=== PATIENT | male | born 1970 | race Caucasian/White ===

== ENCOUNTER 2016-10-10 14:16 | Emergency (ER) | payer OTHER ==
--- NOTE | 2016-10-10 16:15 | ED ---
General Adult HPI - General Source: patient, RN notes reviewed Mode of arrival: ambulatory Limitations: no limitations <Harshad Levy - Last Filed: 10/10/16 16:12> <Aubrey Bass - Last Filed: 10/10/16 20:58> <Jhoan Duran - Last Filed: 10/11/16 03:31> - General Chief complaint: Psychiatric Symptoms Stated complaint: Mental Health Time Seen by Provider: 10/10/16 15:05 - History of Present Illness Initial comments: Patient is a 46-year-old male who presents emergency room today with a chief complaint of suicidal ideation. Patient is moving his medications for the past 5 days. He states the symptoms have been increasing over the last few weeks. Patient states he is trying to follow up with therapist but currently between therapist counselors at this time. Patient does admit to attempt suicide in the past and hospitalization. He denies any homicidal thoughts or plans. Does admit to auditory hallucinations. Denies any other complaints. Patient denies any recent fever, chills, shortness of breath, chest pain, back pain, abdominal pain, nausea or vomiting, numbness or tingling, dysuria or hematuria, constipation or diarrhea, headaches or visual changes, or any other complaints. (Harshad Levy) - Related Data Home Medications Medication Instructions Recorded Confirmed OXcarbazepine [Trileptal] 300 mg PO BID 10/10/16 10/10/16 QUEtiapine [SEROquel] 100 mg PO HS 10/10/16 10/10/16 buPROPion HCL [Wellbutrin XL] 150 mg PO DAILY 10/10/16 10/10/16 clonazePAM [KlonoPIN] 1 mg PO HS PRN 10/10/16 10/10/16 traZODone HCL [Desyrel] 100 mg PO HS 10/10/16 10/10/16 Allergies Allergy/AdvReac Type Severity Reaction Status Date / Time Penicillins Allergy Unknown Verified 10/10/16 15:14 Childhood Review of Systems ROS Other: All systems not noted in ROS Statement are negative. <Harshad Levy - Last Filed: 10/10/16 16:12> ROS Other: All systems not noted in ROS Statement are negative. <Aubrey Bass - Last Filed: 10/10/16 20:58> ROS Other: All systems not noted in ROS Statement are negative. <Jhoan Duran - Last Filed: 10/11/16 03:31> ROS Statement: Those systems with pertinent positive or pertinent negative responses have been documented in the HPI. Past Medical History Past Medical History: No Reported History History of Any Multi-Drug Resistant Organisms: None Reported Past Surgical History: Orthopedic Surgery Additional Past Surgical History / Comment(s): DEVIATED SEPTUM, LEFT WRIST SURGERY Past Psychological History: Depression Smoking Status: Current every day smoker Past Alcohol Use History: Abuse Past Drug Use History: Cocaine <Harshad Levy - Last Filed: 10/10/16 16:12> General Exam Limitations: no limitations <Harshad Levy - Last Filed: 10/10/16 16:12> <Aubrey Bass - Last Filed: 10/10/16 20:58> <Jhoan Duran - Last Filed: 10/11/16 03:31> - General Exam Comments Initial Comments: General: The patient is awake and alert, in no distress, and does not appear acutely ill. Eye: Pupils are equal, round and reactive to light, extra-ocular movements are intact. No nystagmus. There is normal conjunctiva bilaterally. No signs of icterus. Ears, nose, mouth and throat: There are moist mucous membranes and no oral lesions. Neck: The neck is supple, there is no tenderness or JVD. Cardiovascular: There is a regular rate and rhythm. No murmur, rub or gallop is appreciated. Respiratory: Lungs are clear to auscultation, respirations are non-labored, breath sounds are equal. No wheezes, stridor, rales, or rhonchi. Musculoskeletal: Normal ROM, no tenderness. Strength 5/5. Sensation intact. Pulses equal bilaterally 2+. Neurological: A&O x 3. CN II-XII intact, There are no obvious motor or sensory deficits. Coordination appears grossly intact. Speech is normal. Skin: Skin is warm and dry and no rashes or lesions are noted. Psychiatric: Cooperative, appropriate mood & affect, normal judgment. (Harshad Levy) Course <Harshad Levy - Last Filed: 10/10/16 16:12> <Aubrey Bass - Last Filed: 10/10/16 20:58> <Jhoan Duran - Last Filed: 10/11/16 03:31> Vital Signs 10/10/16 10/10/16 10/10/16 14:33 18:21 21:39 Temperature 97.7 F Pulse Rate 94 78 77 Respiratory 18 16 16 Rate Blood Pressure 141/96 118/75 140/83 O2 Sat by Pulse 97 96 97 Oximetry 10/11/16 10/11/16 01:18 02:55 Temperature 97.9 F Pulse Rate 76 58 L Respiratory 16 16 Rate Blood Pressure 141/79 112/55 O2 Sat by Pulse 97 98 Oximetry - Reevaluation(s) Reevaluation #1: 10/11/16 03:30 Patient reevaluated by myself, Dr. Duran. Additional paperwork requested and additional certificate completed although Dr. Bass had arty completed to earlier. Patient admits to feeling depressed and having suicidal thoughts. Patient has plans including overdosing on pills. Patient states he is unable to get help outside of the hospital. Positive clinical certificate completed. 10/11/16 03:30 Patient will be transferred to [facility]. (Jhoan Duran) Medical Decision Making <Harshad Levy - Last Filed: 10/10/16 16:12> - Lab Data Result diagrams: 10/10/16 19:55 10/10/16 19:55 <Aubrey Bass - Last Filed: 10/10/16 20:58> - Lab Data Result diagrams: 10/10/16 19:55 10/10/16 19:55 <Jhoan Duran - Last Filed: 10/11/16 03:31> - Medical Decision Making I interviewed the patient. He has had a history of alcohol problems been through rehab for times. Last time was rehab managed to stay free of alcohol for 3 years. Recently he does have difficulties with family. Used to live with his father and became homeless. Patient's depressed and suicidal. He has an the past overdosed on medications which put him into a coma for several days. Denies overdosing. Psychiatric nurse evaluated the patient position and either this Hospital or another hospital is being researched. I completed a certificate for admission. Diagnosis of major depression, suicidal Dr. Bass ( Aubrey Bass) - Lab Data Lab Results 10/10/16 10/10/16 10/10/16 Range/Units 15:15 15:15 19:55 WBC 8.6 (3.8-10.6) k/uL RBC 5.16 (4.30-5.90) m/uL Hgb 16.0 (13.0-17.5) gm/dL Hct 47.0 (39.0-53.0) % MCV 91.0 (80.0-100.0) fL MCH 31.1 (25.0-35.0) pg MCHC 34.2 (31.0-37.0) g/dL RDW 12.6 (11.5-15.5) % Plt Count 186 (150-450) k/uL Neutrophils % 59 % Lymphocytes % 32 % Monocytes % 4 % Eosinophils % 3 % Basophils % 0 % Neutrophils # 5.1 (1.3-7.7) k/uL Lymphocytes # 2.7 (1.0-4.8) k/uL Monocytes # 0.3 (0-1.0) k/uL Eosinophils # 0.3 (0-0.7) k/uL Basophils # 0.0 (0-0.2) k/uL Sodium (137-145) mmol/L Potassium (3.5-5.1) mmol/L Chloride (98-107) mmol/L Carbon Dioxide (22-30) mmol/L Anion Gap mmol/L BUN (9-20) mg/dL Creatinine (0.66-1.25) mg/dL Est GFR (MDRD) Af Amer (>60 ml/min/1.73 sqM) Est GFR (MDRD) Non-Af (>60 ml/min/1.73 sqM) Glucose (74-99) mg/dL Calcium (8.4-10.2) mg/dL Total Bilirubin (0.2-1.3) mg/dL AST (17-59) U/L ALT (21-72) U/L Alkaline Phosphatase (38-126) U/L Total Protein (6.3-8.2) g/dL Albumin (3.5-5.0) g/dL Urine Color Yellow Urine Appearance Clear (Clear) Urine pH 5.5 (5.0-8.0) Ur Specific [place] 1.009 (1.001-1.035) Urine Protein Negative (Negative) Urine Glucose (UA) Negative (Negative) Urine Ketones Negative (Negative) Urine Blood Negative (Negative) Urine Nitrate Negative (Negative) Urine Bilirubin Negative (Negative) Urine Urobilinogen <2.0 (<2.0) mg/dL Ur Leukocyte Esterase Small H (Negative) Urine RBC <1 (0-5) /hpf Urine WBC 4 (0-5) /hpf Urine Mucus Rare H (None) /hpf Urine Opiates Screen Not Detected (NotDetected) Ur Oxycodone Screen Not Detected (NotDetected) Urine Methadone Screen Not Detected (NotDetected) Ur Propoxyphene Screen Not Detected (NotDetected) Ur Barbiturates Screen Not Detected (NotDetected) U Tricyclic Antidepress Detected H (NotDetected) Ur Phencyclidine Scrn Not Detected (NotDetected) Ur Amphetamines Screen Not Detected (NotDetected) U Methamphetamines Scrn Not Detected (NotDetected) U Benzodiazepines Scrn Detected H (NotDetected) Urine Cocaine Screen Not Detected (NotDetected) U Marijuana (THC) Screen Not Detected (NotDetected) 10/10/16 Range/Units 19:55 WBC (3.8-10.6) k/uL RBC (4.30-5.90) m/uL Hgb (13.0-17.5) gm/dL Hct (39.0-53.0) % MCV (80.0-100.0) fL MCH (25.0-35.0) pg MCHC (31.0-37.0) g/dL RDW (11.5-15.5) % Plt Count (150-450) k/uL Neutrophils % % Lymphocytes % % Monocytes % % Eosinophils % % Basophils % % Neutrophils # (1.3-7.7) k/uL Lymphocytes # (1.0-4.8) k/uL Monocytes # (0-1.0) k/uL Eosinophils # (0-0.7) k/uL Basophils # (0-0.2) k/uL Sodium 140 (137-145) mmol/L Potassium 3.6 (3.5-5.1) mmol/L Chloride 104 (98-107) mmol/L Carbon Dioxide 26 (22-30) mmol/L Anion Gap 10 mmol/L BUN 12 (9-20) mg/dL Creatinine 1.10 (0.66-1.25) mg/dL Est GFR (MDRD) Af Amer >60 (>60 ml/min/1.73 sqM) Est GFR (MDRD) Non-Af >60 (>60 ml/min/1.73 sqM) Glucose 100 H (74-99) mg/dL Calcium 9.3 (8.4-10.2) mg/dL Total Bilirubin 1.0 (0.2-1.3) mg/dL AST 66 H (17-59) U/L ALT 48 (21-72) U/L Alkaline Phosphatase 68 (38-126) U/L Total Protein 6.9 (6.3-8.2) g/dL Albumin 4.2 (3.5-5.0) g/dL Urine Color Urine Appearance (Clear) Urine pH (5.0-8.0) Ur Specific [place] (1.001-1.035) Urine Protein (Negative) Urine Glucose (UA) (Negative) Urine Ketones (Negative) Urine Blood (Negative) Urine Nitrate (Negative) Urine Bilirubin (Negative) Urine Urobilinogen (<2.0) mg/dL Ur Leukocyte Esterase (Negative) Urine RBC (0-5) /hpf Urine WBC (0-5) /hpf Urine Mucus (None) /hpf Urine Opiates Screen (NotDetected) Ur Oxycodone Screen (NotDetected) Urine Methadone Screen (NotDetected) Ur Propoxyphene Screen (NotDetected) Ur Barbiturates Screen (NotDetected) U Tricyclic Antidepress (NotDetected) Ur Phencyclidine Scrn (NotDetected) Ur Amphetamines Screen (NotDetected) U Methamphetamines Scrn (NotDetected) U Benzodiazepines Scrn (NotDetected) Urine Cocaine Screen (NotDetected) U Marijuana (THC) Screen (NotDetected) Disposition <Harshad Levy - Last Filed: 10/10/16 16:12> <Aubrey Bass - Last Filed: 10/10/16 20:58> <Jhoan Duran - Last Filed: 10/11/16 03:31> Clinical Impression: Depression, Suicidal ideation Disposition: TRANSFER TO PSYCH HOSP/UNIT
[2016-10-10 18:21] VITALS: RESP 16
[2016-10-10 20:03] LABS: Appearance,Urine Clear (Clear); Bilirubin,Urine Negative (Negative); Glucose,Urine (UA) Negative (Negative); Ketones,Urine Negative (Negative); Leukocyte Esterase,Urine Small (Negative); Mucus,Urine Rare /hpf; Nitrite,Urine Negative (Negative); PH, Urine 5.5 (5.0-8.0); Particle Count 1128; Protein,Urine Negative (Negative); RBC,Urine <1 /hpf (0-5); Specific Gravity,Urine 1.009 (1.001-1.035); UA Billing (MACRO vs. MICRO) MICRO; Urobilinogen,Urine <2.0 mg/dL (<2.0); WBC,Urine 4 /hpf (0-5)
[2016-10-10 20:09] LABS: Basophils % (A) 0 %; CH 32.4; CHCM 35.7; Eosinophils # (A) 0.3 k/uL (0-0.7); Eosinophils % (A) 3 %; HDW 2.36; Luc # (Auto) 0.17; Luc % (Auto) 2; Lymphocytes # (A) 2.7 k/uL (1.0-4.8); Lymphocytes % (A) 32 %; MCH 31.1 pg (25.0-35.0); MCHC 34.2 g/dL (31.0-37.0); Mean Platelet Volume 6.6; Monocytes # (A) 0.3 k/uL (0-1.0); Monocytes % (A) 4 %; Neutrophils # (A) 5.1 k/uL (1.3-7.7); Neutrophils % (A) 59 %; RBC 5.16 m/uL (4.30-5.90); RDW 12.6 % (11.5-15.5); WBC 8.6 k/uL (3.8-10.6); WBC (Perox) 8.88
[2016-10-10 20:19] LABS: ALT 48 U/L (21-72); AST 66 U/L (17-59); Alkaline Phosphatase 68 U/L (38-126); Anion Gap 10 mmol/L; Blood Urea Nitrogen 12 mg/dL (9-20); Calcium 9.3 mg/dL (8.4-10.2); Carbon Dioxide 26 mmol/L (22-30); Chloride 104 mmol/L (98-107); Glucose 100 mg/dL (74-99); Non-African American GFR(MDRD) >60 (>60 ml/min/1.73 sqM); Potassium 3.6 mmol/L (3.5-5.1); Sodium 140 mmol/L (137-145); Total Protein 6.9 g/dL (6.3-8.2)
[2016-10-11] MEDS ORDERED: traZODone HCL 50 MG TAB PO ONE (00:59)
[2016-10-11] MEDS ORDERED: clonazePAM 1 MG TAB PO STA (01:00)
[2016-10-11] MEDS ORDERED: QUEtiapine 100 MG TAB PO STA (01:01)
[2016-10-11 02:55] VITALS: TEMP 97.9
[2016-10-11 06:05] VITALS: BP 110/55; PULSE 64
== END 2016-10-11 06:44 ==
LOC: EC 14:16
DX: F32.9 Major depressive disorder, single episode, unspecified (principal); R45.851 Suicidal ideations; F17.200 Nicotine dependence, unspecified, uncomplicated; Z88.0 Allergy status to penicillin; Z79.899 Other long term (current) drug therapy
CPT/HCPCS: 36415; 80053; 80306; 81001; 82075; 85025; 99285

== ENCOUNTER 2021-02-03 07:55 | Day surgery (SDC) | payer OTHER ==
[2021-01-30 11:47] VITALS: BMI 24.3
[~2021-02-03 07:55] MED LIST: LIDOCAINE 1% (10MG/ML) FOR IV START INTRADERMA PRN
[2021-02-03 08:34] VITALS: TEMP 97.3
[2021-02-03] MEDS: LACTATED RINGERS 1,000 ML IV SCH ×2 (08:40→09:46)
[2021-02-03] MEDS ORDERED: PROPOFOL 10 MG/ML 20 ML VIAL IV ONE (09:56)
[2021-02-03] MEDS ORDERED: LIDOCAINE 1% INJ 10MG/ML (20 ML MDV) ONE (09:56)
--- NOTE | 2021-02-03 10:31 | P.PCN ---
Date of Procedure: 02/03/21 Description of Procedure: BRIEF HISTORY: Patient is a 50-year-old male presenting for outpatient colonoscopy for screening for malignant neoplasm of the colon. No family history of colon cancer. No prior colonoscopies. No change in bowel habits. PROCEDURE PERFORMED: Colonoscopy with polypectomy. PREOPERATIVE DIAGNOSIS: Screening for malignant neoplasm of the colon, no prior colonoscopy. ESTIMATED BLOOD LOSS: Minimal. IV sedation per Anesthesia. PROCEDURE: After informed consent was obtained, the patient, was brought into the endoscopy unit. IV sedation was administered by Anesthesia under continuous monitoring. Digital rectal examination was normal. Initially the Olympus CF-190 flexible video colonoscope was then inserted in the rectum, gradually advanced into the cecum without any difficulty. Careful examination was performed as the scope was gradually being withdrawn. Ileocecal valve and the appendiceal orifice were visualized and appeared normal. Prep was excellent. Mucosa of the cecum, ascending colon, transverse colon, descending colon, sigmoid colon, and rectum appeared normal. A pedunculated 13 mm polyp in the sigmoid colon was removed with hot snare polypectomy, 25 cm from anal verge. Retroflexion was performed in the rectum and no lesions were seen, and low-grade internal hemorrhoids were noted. The patient tolerated the procedure well. IMPRESSION: Pedunculated sigmoid polyp removed with hot snare polypectomy. Internal hemorrhoids. RECOMMENDATIONS: Findings of this examination were discussed with the patient and his family. Okay to resume diet. Okay to resume medications. Await pathology from polypectomy. Repeat colonoscopy in 3 years for colon polyps pending pathology from polypectomy.
[2021-02-03 10:48] VITALS: BP 110/68; PULSE 47; RESP 18
== END 2021-02-03 10:57 | disposition home or self-care (01) ==
LOC: ORWHC2ENDO 07:55
PROVIDERS: ATTEND Internal Medicine
DX: Z12.11 Encounter for screening for malignant neoplasm of colon (principal); D12.5 Benign neoplasm of sigmoid colon; Z88.0 Allergy status to penicillin; Z87.891 Personal history of nicotine dependence; F25.9 Schizoaffective disorder, unspecified; F41.9 Anxiety disorder, unspecified; M19.90 Unspecified osteoarthritis, unspecified site; F32.9 Major depressive disorder, single episode, unspecified; Z79.899 Other long term (current) drug therapy
CPT/HCPCS: 88305; 45385; J2001; J2704